=== PATIENT | female | born 1965 | race Caucasian/White ===

== ENCOUNTER 2018-03-16 09:34 | Outpatient (CLI) | payer OTHER ==
--- NOTE | 2018-03-16 10:11 | RAD ---
LEFT SHOULDER THREE VIEWS: History: Left shoulder pain. FINDINGS: Humeral head is normally positioned. AC joint normally aligned. Mild spurring from the AC joint. No s ignificant degenerative change at the glenohumeral joint. No fracture or dislocation. IMPRESSION: Mild spurring at the AC joint. Left shoulder otherwise unremarkable. POS: [facility]
--- NOTE | 2018-03-16 10:18 | RAD ---
LEFT FOOT 3 VIEWS: Date: 03/16/18 HISTORY: Pain in metatarsals of the left foot. Injury to left foot a month ago. FINDINGS/IMPRESSION: No fracture or dislocation is seen. POS: [facility]
== END 2018-03-16 09:35 | disposition home or self-care (01) ==
LOC: BICRAD 09:34
PROVIDERS: ATTEND Internal Medicine
DX: M25.512 Pain in left shoulder (principal); M25.572 Pain in left ankle and joints of left foot; M75.92 Shoulder lesion, unspecified, left shoulder

== ENCOUNTER 2018-04-05 12:37 | Outpatient (CLI) | payer OTHER ==
--- NOTE | 2018-04-05 14:49 | RAD ---
CHEST TWO VIEWS: INDICATIONS: Reactive airways disease, asthmatic bronchitis and cough. FINDINGS: The lungs appear clear. No infiltrate or effusion is seen. The heart and mediastinum are unremarkab le. Vascular markings are normal. The osseous structures are unremarkable. IMPRESSION: Unremarkable chest. POS: [facility]
== END 2018-04-05 12:38 | disposition home or self-care (01) ==
LOC: BICRAD 12:37
PROVIDERS: ATTEND Internal Medicine
DX: J45.50 Severe persistent asthma, uncomplicated (principal)
CPT/HCPCS: 71046

== ENCOUNTER 2018-04-29 19:28 | Emergency (ER) | payer OTHER ==
--- NOTE | 2018-04-29 20:24 | RAD ---
LEFT ELBOW THREE VIEWS: 04/29/18 HISTORY: Left elbow pain following an injury. Mild degenerative changes. No evidence for acute fracture or dis location. No evidence for joint effusion. IMPRESSION: Mild degenerative change without acute fracture or dislocation. POS: [facility]
== END 2018-04-29 20:22 | disposition home or self-care (01) ==
LOC: ERS 19:28
DX: S50.02XA Contusion of left elbow, initial encounter (principal); F17.290 Nicotine dependence, other tobacco product, uncomplicated; E78.5 Hyperlipidemia, unspecified; Z79.899 Other long term (current) drug therapy; W22.8XXA Striking against or struck by other objects, initial encounter

== ENCOUNTER 2018-07-15 16:16 | Emergency (ER) | payer OTHER, SELFPAY ==
[2018-07-15] MEDS ORDERED: Ketorolac Tromethamine 30 MG/ML VIAL ONE (16:47)
== END 2018-07-15 16:52 | disposition home or self-care (01) ==
LOC: ERS 16:16
DX: S46.812A Strain of other muscles, fascia and tendons at shoulder and upper arm level, left arm, initial encounter (principal); S46.811A Strain of other muscles, fascia and tendons at shoulder and upper arm level, right arm, initial encounter; E78.5 Hyperlipidemia, unspecified; F17.290 Nicotine dependence, other tobacco product, uncomplicated; X50.1XXA Overexertion from prolonged static or awkward postures, initial encounter; Y92.59 Other trade areas as the place of occurrence of the external cause; Y99.0 Civilian activity done for income or pay
CPT/HCPCS: 96372; J1885

== ENCOUNTER 2018-08-22 12:27 | Emergency (ER) | payer SELFPAY | END 2018-08-22 14:25 | disposition home or self-care (01) | LOC: ERS 12:27 | DX: S01.511A Laceration without foreign body of lip, initial encounter (principal); S80.01XA Contusion of right knee, initial encounter; S50.01XA Contusion of right elbow, initial encounter; E78.5 Hyperlipidemia, unspecified; Z79.899 Other long term (current) drug therapy; F17.290 Nicotine dependence, other tobacco product, uncomplicated; W19.XXXA Unspecified fall, initial encounter | CPT/HCPCS: 99282 ==

== ENCOUNTER 2018-09-11 08:51 | Emergency (ER) | payer OTHER, SELFPAY | END 2018-09-11 10:32 | disposition home or self-care (01) | LOC: ERS 08:51 | DX: M75.102 Unspecified rotator cuff tear or rupture of left shoulder, not specified as traumatic (principal); E78.5 Hyperlipidemia, unspecified; F41.9 Anxiety disorder, unspecified; F32.9 Major depressive disorder, single episode, unspecified; F17.290 Nicotine dependence, other tobacco product, uncomplicated; Z79.899 Other long term (current) drug therapy ==